=== PATIENT | male | born 1940 | race Caucasian/White ===

== ENCOUNTER 2016-06-30 10:43 | Outpatient (CLI) | payer MEDICARE, OTHER ==
--- NOTE | 2016-06-30 11:27 | Diagnostic Imaging Report ---
CT scan of the brain without intravenous contrast HISTORY: Headache, fall Total DLP equals 795 CTDI equals 41.1 Axial sections were obtained to the base of the skull to the vertex. There is enlargement of the ventricular system along with enlargement of cerebral sulci and subarachnoid cisterns reflecting generalized atrophy. Generalized hypodensity is noted through the white matter region of the right temporal and occipital areas. No mass effect. 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 If necessary, an MRI exam would provide additional characterization and assessment. No acute intracerebral hemorrhage. Again, no mass effect or shift of midline structures. No extra-axial masses or abnormal fluid collections. IMPRESSION: 1. Generalized hypodensity through the white matter of the right temporal and occipital regions without mass effect. Exact etiology uncertain. 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 Clinical correlation is needed. If necessary, an MRI exam would provide additional characterization. 2. Generalized cerebral atrophy 3. No acute intracerebral hemorrhage
== END 2016-06-30 11:17 | disposition short-term general hospital (02) ==
LOC: RAD 10:43
PROVIDERS: ATTEND Emergency Medicine
DX: G31.9 Degenerative disease of nervous system, unspecified (principal); W19.XXXA Unspecified fall, initial encounter
CPT/HCPCS: 70450-TC